=== PATIENT | male | born 1970 | race Caucasian/White ===

== ENCOUNTER 2021-11-21 15:48 | Emergency (ER) | payer BC ==
[~2021-11-21] VITALS: Ht 177.8 cm; Wt 105.7 kg
[2021-11-21 15:53] VITALS: BP 137/69
--- NOTE | 2021-11-21 15:57 | NUR ---
PT AMBULATED TO ER BED 9
--- NOTE | 2021-11-21 16:00 | NUR ---
PT PLACED ON BRASS RECLAIMER
--- NOTE | 2021-11-21 16:11 | NUR ---
51 Y/O MALE BIB SELF C/O EPIGASTRIC PAIN RADIATING TO CHEST AND SOB SINCE NOON TODAY. PER PT HE WAS HAVING SOME CHRONIC KNEE PAIN AND TOOK AN IBUPROFEN, ATE A HAMBURGER TO "HAVE SOMETHING IN HIS STOMACH" AT 1130 AND NOTED ABD PAIN AT 1230H. PER PT HE STARTED HAVING BURNING AND SHARP PAIN FROM THE EPIGASTRIC TO THE CHEST AND SOB. DENIES RECENT INJURY OR TRAUMA, DENIES N/V/D. NO PAIN NOTED UPON PALPATION PMH: DENIES NKA SX: GALLBLADDER REMOVAL
[2021-11-21] MEDS ORDERED: ALUMINUM HYD/MAG/SIMETHICONE 30 ML UDC PO ONE (16:50)
[2021-11-21] MEDS ORDERED: KETOROLAC 30 MG/ML VIAL IM ONE (16:50)
--- NOTE | 2021-11-21 17:00 | NUR ---
DR MORELAND NOTIFIED OF BULGE NOTED IN UPPER ABD
--- NOTE | 2021-11-21 17:05 | NUR ---
LAB AT BEDSIDE
--- NOTE | 2021-11-21 17:10 | NUR ---
DR MORELAND AT BEDSIDE
[2021-11-21 17:16] LABS: BASOPHILS # (AUTO) 0.1 K/uL (0.00-0.22); BASOPHILS % (AUTO) 0.7 % (0.0-2.0); EOSINOPHILS % (AUTO) 0.5 % (0.0-4.0); HEMATOCRIT 41.2 % (36-52); HEMOGLOBIN 13.9 g/dL (12.0-18.0); LYMPHOCYTES # (AUTO) 1.2 K/uL (2.0-11.5); LYMPHOCYTES % (AUTO) 12.2 % (20.5-51.1); MEAN CORPUSCULAR HEMOGLOBIN 30 pg (27-31); MEAN CORPUSCULAR HGB CONC 34 g/dL (33-37); MEAN CORPUSCULAR VOLUME 89.2 fL (80-94); MONOCYTES # (AUTO) 0.5 K/uL (0.8-1.0); MONOCYTES % (AUTO) 4.7 % (1.7-9.3); NEUTROPHILS # (AUTO) 8.2 K/uL (1.8-7.7); NEUTROPHILS % (AUTO) 81.9 % (42.2-75.2); PLATELET COUNT (AUTO) 276 K/uL (140-450); RED BLOOD CELL COUNT(AUTO) 4.62 MIL/uL (4.20-6.10); RED CELL DISTRIBUTION WIDTH 12.9 % (11.6-13.7); WHITE BLOOD COUNT (AUTO) 10.1 K/uL (4.8-10.8)
[2021-11-21 17:34] LABS: ALBUMIN 3.4 g/dL (3.4-5.0); ANION GAP 12.1 (8-16); CARBON DIOXIDE 27.6 mmol/L (21-32); POTASSIUM 3.7 mmol/L (3.5-5.1); TOTAL BILIRUBIN 0.3 mg/dL (0.0-1.0)
[2021-11-21 17:39] LABS: LIPASE 66 U/L (73-393)
[2021-11-21] MEDS ORDERED: NAPR-54 PO (18:29)
[2021-11-21 18:44] VITALS: BP 102/52
== END 2021-11-21 18:44 | disposition home or self-care (01) ==
LOC: MED 15:48
DX: S83.411A Sprain of medial collateral ligament of right knee, initial encounter (principal); K46.9 Unspecified abdominal hernia without obstruction or gangrene; Z90.49 Acquired absence of other specified parts of digestive tract; X58.XXXA Exposure to other specified factors, initial encounter; Y93.89 Activity, other specified; Y92.89 Other specified places as the place of occurrence of the external cause; Y99.8 Other external cause status
CPT/HCPCS: 36415; 80053; 83690; 83880; 84484; 85025; 93005; 96372; 99284; J1885